=== PATIENT | female | born 1995 | race Two or more races ===

== ENCOUNTER 2023-07-13 12:45 | Outpatient (CLI) | payer OTHER | END 2023-07-13 13:00 | disposition home or self-care (01) | LOC: LAB.N 12:45 | PROVIDERS: ATTEND Physician Assistant Medical | DX: R10.9 Unspecified abdominal pain (principal) | CPT/HCPCS: 87077; 87086 ==

== ENCOUNTER 2023-07-14 19:59 | Emergency (ER) | payer OTHER ==
[2023-07-14 20:27] LABS: BASOPHILS % (AUTO) 0.4 %; EOSINOPHILS # (AUTO) 0.1 10^3/uL (0.0-0.7); EOSINOPHILS % (AUTO) 0.8 %; HGB - HEMOGLOBIN 14.4 g/dL (12.0-16.0); LYMPHOCYTES # (AUTO) 3.3 10^3/uL (1.5-3.5); LYMPHOCYTES % (AUTO) 33.8 %; MEAN CORPUSCULAR HEMOGLOBIN 29.2 pg (27.0-31.0); MEAN CORPUSCULAR HGB CONC 34.3 g/dL (32.0-36.0); MEAN CORPUSCULAR VOLUME 85.2 fL (81.0-99.0); MEAN PLATELET VOLUME 11.4 fL (7.9-10.8); MONOCYTES # (AUTO) 0.6 10^3/uL (0.0-1.0); MONOCYTES % (AUTO) 6.1 %; NEUTROPHILS # (AUTO) 5.6 10^3/uL (1.5-6.6); NEUTROPHILS % (AUTO) 58.6 %; PLT - PLATELET COUNT 207 10^3/uL (130-450); RED BLOOD COUNT 4.93 10^6/uL (4.20-5.40); RED CELL DISTRIBUTION WIDTH 11.7 % (12.0-15.0); WHITE BLOOD COUNT 9.6 x10^3/uL (4.8-10.8)
--- NOTE | 2023-07-14 20:32 | ED Physician Documentation ---
History of Present Illness - Stated complaint Stated Complaint: L SIDE PX - Chief complaint Chief Complaint: Abd Pain - History obtained from History obtained from: Patient - Additonal information Additional information: 27yF with pmh asthma, psh cholecystectomy 2010, p/w 2-3 days of intermittent LLQ abdominal pain, worse with moving around and moving the left leg. no history of trauma to the hip or pelvic area. lmp 5 days ago. denies dysuria, hematuria, increased frequency, however she did get diagnosed with uti yesterday at [facility] and is on dose 2 of antibiotics. unsure which antibiotic. denies fever, n/v/d back pain. 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 : None HEENT: None Psych: None Musculoskeletal: None Derm: None - Past Surgical History Past Surgical History: Yes General: Cholecystectomy - Present Medications Home Medications: Ambulatory Orders Medication Instructions Recorded Confirmed Ketorolac [Toradol] 10 mg PO Q6H PRN #20 tablet 07/14/23 Nitrofurantoin Macrocrystal 1 cap PO BID 07/14/23 07/14/23 [Macrodantin] - Allergies Allergies/Adverse Reactions: Allergies Allergy/AdvReac Type Severity Reaction Status Date / Time enoxaparin [From Lovenox] Allergy Hives Verified 07/14/23 20:03 omeprazole Allergy Hives Verified 07/14/23 20:03 - Social History Does the pt smoke?: No Smoking Status: Never smoker Does the pt drink ETOH?: No Does the pt have substance abuse?: No - Immunizations Immunizations are current?: Yes - POLST Patient has POLST: No PD ED PE NORMAL - Vitals Vital signs reviewed: Yes - General General: Alert and oriented X 3, Well developed/nourished, Other (tearful appearing. large body habitus) - HEENT HEENT: Atraumatic, PERRL, EOMI - Neck Neck: Supple, no meningeal sign - Cardiac Cardiac: RRR - Respiratory Respiratory: No respiratory distress, Clear bilaterally - Abdomen Abdomen: Non tender, Non distended, Other (LLQ discomfort to palpation without guarding or rebound) - Back Back: No CVA TTP - Derm Derm: Normal color, Warm and dry Results - Vitals Vitals: Vital Signs - 24 hr 07/14/23 07/14/23 20:03 22:06 Temperature 36.8 C Heart Rate 90 76 Respiratory 18 16 Rate Blood Pressure 140/90 H 125/84 H O2 Saturation 98 97 Oxygen O2 Source Room air - Labs Labs: Laboratory Tests 07/14/23 07/14/23 07/14/23 20:22 20:22 20:22 WBC 9.6 RBC 4.93 Hgb 14.4 Hct 42.0 MCV 85.2 MCH 29.2 MCHC 34.3 RDW 11.7 L Plt Count 207 MPV 11.4 H Neut # (Auto) 5.6 Lymph # (Auto) 3.3 [place] # (Auto) 0.6 Eos # (Auto) 0.1 Baso # (Auto) 0.0 Absolute Nucleated RBC 0.00 Nucleated RBC % 0.0 Sodium 137 Potassium 3.6 Chloride 103 Carbon Dioxide 26 Anion Gap 8.0 BUN 9 Creatinine 0.6 Estimated GFR (MDRD) 119 Glucose 88 Calcium 9.7 Total Bilirubin 0.3 AST 23 ALT 50 Alkaline Phosphatase 79 Total Protein 7.2 Albumin 4.7 Globulin 2.5 Albumin/Globulin Ratio 1.9 Lipase 12 Urine Color STRAW Urine Clarity CLEAR Urine pH 6.0 Ur Specific [place] <=1.005 Urine Protein NEGATIVE Urine Glucose (UA) NEGATIVE Urine Ketones NEGATIVE Urine Occult Blood NEGATIVE Urine Nitrite NEGATIVE Urine Bilirubin NEGATIVE Urine Urobilinogen 0.2 (NORMAL) Ur Leukocyte Esterase NEGATIVE Ur Microscopic Review NOT INDICATED Urine Culture Comments NOT INDICATED Urine HCG, Qual NEGATIVE PD Medical Decision Making - ED course ED course: 27yF presents to the ED with LLQ pain in setting of recently diagnosed uti. plan to obtain cbc, abdominal panel, hcg, u/a, and u/s to r/o ovarian torsion or ectopic . everything was normal. IV toradol and IV dilaudid provided for pain to good effect. return precautions will be given and plan to f/u with pcp. Departure - Departure Disposition: 01 Home, Self Care Clinical Impression: Abdominal pain Condition: Stable Instructions: Abdominal Pain Prescriptions: Ketorolac [Toradol] 10 mg PO Q6H PRN #20 tablet PRN Reason: Pain Comments: You were seen in the emergency department for Abdominal pain and hip pain. You labwork, urine and ultrasound were normal. Pain medicine sent electronically to [facility]. Please follow-up with your primary care provider and return to the emergency department if you have any new or worsening symptoms or other concerns. Forms: PCP List
[2023-07-14 20:47] LABS: BILIRUBIN,URINE NEGATIVE (NEGATIVE); GLUCOSE, URINE (UA) NEGATIVE (NEGATIVE); KETONES,URINE (UA) NEGATIVE (NEGATIVE); LEUKOCYTE ESTERASE, URINE NEGATIVE (NEGATIVE); NITRITE,URINE NEGATIVE (NEGATIVE); OCCULT BLOOD,URINE NEGATIVE (NEGATIVE); PROTEIN,URINE NEGATIVE (NEGATIVE); UROBILINOGEN,URINE 0.2 (NORMAL) E.U./dL (NORMAL)
[2023-07-14 20:50] LABS: CLARITY,URINE CLEAR (CLEAR)
[2023-07-14 20:51] LABS: HCG UR QUAL NEGATIVE
[2023-07-14 20:58] LABS: ALBUMIN 4.7 g/dL (3.2-5.5); ALBUMIN/GLOBULIN RATIO 1.9 (1.0-2.2); BILIRUBIN,TOTAL 0.3 mg/dL (0.2-1.0); CALCIUM 9.7 mg/dL (8.5-10.3); CREATININE 0.6 mg/dL (0.6-1.3); POTASSIUM 3.6 mmol/L (3.5-4.5); TOTAL PROTEIN 7.2 g/dL (6.4-8.9)
[2023-07-14] MEDS: KETOROLAC 15 MG/ML VIAL IVP STA (21:09)
[2023-07-14] MEDS: HYDROmorphone 1 MG/ML CARPUJECT IVP STA (23:16)
[2023-07-15] MEDS: ONDANSETRON 4 MG/2 ML VIAL IVP STA (00:04)
--- NOTE | 2023-07-15 00:29 | Ultrasound Report ---
PROCEDURE: Pelvic w/Doppler Complete INDICATIONS: LLQ pain TECHNIQUE: Real-time scanning was performed of the pelvic organs, with image documentation. Additional endovagi nal scanning was necessary due to incomplete visualization of the adnexal and endometrial structures by transabdominal scanning. Doppler interrogation was performed of the ovaries bilaterally. COMPARISON: None. FINDINGS: Uterus: Uterus is anteverted and normal in size at 7.3 x 2.8 x 3.8 cm. The myometrium is homogeneou s. The endometrium measures 5 mm in combined thickness. No uterine or endometrial masses. Normal va scular flow. Nabothian cyst in the cervix. Ovaries: The right ovary measures 2.6 x 1.6 x 3.3 cm, with a calculated ovarian volume of 7.2 cc. T he left ovary measures 2.1 x 2.2 x 2.1 cm, with a calculated ovarian volume of 4.9 cc. Appropriate b lood flow to the ovaries with Doppler interrogation. Less than 12 follicles can be seen in each ova ry. No adnexal masses are seen. No cystic lesions measuring greater than 3 cm. Other: No pathologic free abdominal or pelvic fluid. IMPRESSION: Normal pelvic ultrasound. Preliminary results given by the laborer poultry hatchery to the ordering provider immediately following the study . Reviewed by: Lizy Bishop MD on 07/15/2023 12:28 AM PDT Approved by: Lizy Bishop MD on 07/15/2023 12:28 AM PDT Station ID: [id number]
[2023-07-15 00:45] VITALS: BP 131/92; O2SAT 95
== END 2023-07-15 00:38 | disposition home or self-care (01) ==
LOC: ED 19:59
DX: R10.32 Left lower quadrant pain (principal); Z79.899 Other long term (current) drug therapy
CPT/HCPCS: 36415; 76856; 80053; 81003; 81025; 83690; 85025; 93975; 96374; 96375; 99284; J1170; 81001; 87086

== ENCOUNTER 2023-12-20 21:40 | Emergency (ER) | payer OTHER ==
--- NOTE | 2023-12-21 00:20 | ED Physician Documentation ---
PD HPI BACK PAIN - Stated complaint Stated Complaint: BACK PX - Chief complaint Chief Complaint: Back Pain - History obtained from History obtained from: Patient - Additional information Additional information: HPI from patient. Patient c/o left low pain pain radiating around left pelvic area to left hip. Gradual onset approximately 1 week ago without inciting event; denies injury. Pain waxes and wanes without apparent exacerbating or ameliorating factors. Pain is not noticeably worse with palpation, movement, ambulation. Denies numbness, weakness, nausea, vomiting. Denies h/o similar symptoms. Denies leg swelling. Review of Systems Constitutional: denies: Fever, Chills, Sweats Cardiac: reports: Reviewed and negative Respiratory: reports: Reviewed and negative GI: reports: Abdominal Pain. 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 HEENT: None Psych: None Musculoskeletal: None Derm: None - Past Surgical History Past Surgical History: Yes General: Cholecystectomy - Present Medications Home Medications: Ambulatory Orders Medication Instructions Recorded Confirmed HYDROcod/ACETAM 5/325 [Willow 5/325] 1 - 2 tablet PO Q6H PRN #14 tablet 12/21/23 - Allergies Allergies/Adverse Reactions: Allergies Allergy/AdvReac Type Severity Reaction Status Date / Time enoxaparin [From Lovenox] Allergy Hives Verified 12/20/23 21:48 omeprazole Allergy Hives Verified 12/20/23 21:48 - Social History Does the pt smoke?: No Smoking Status: Never smoker Does the pt drink ETOH?: No Does the pt have substance abuse?: No - Immunizations Immunizations are current?: Yes - POLST Patient has POLST: No PD ED PE NORMAL - Vitals Vital signs reviewed: Yes - General General: Alert and oriented X 3, No acute distress, Well developed/nourished - Cardiac Cardiac: RRR, No murmur - Respiratory Respiratory: No respiratory distress, Clear bilaterally - Abdomen Abdomen: Soft, Non distended - Back Back: No CVA TTP - Derm Derm: Normal color, Warm and dry, No rash PD ED PE EXPANDED - Abdomen Abdomen: Tender to palpation, Guarding (voluntary), Left abdomen (LLQ>suprapubic). No: Rebound Results - Vitals Vitals: Oxygen O2 Source Room air - Labs Labs: Laboratory Tests 12/21/23 12/21/23 12/21/23 00:38 00:45 00:45 WBC 8.3 RBC 4.98 Hgb 14.5 Hct 43.5 MCV 87.3 MCH 29.1 MCHC 33.3 RDW 11.9 L Plt Count 196 MPV 11.6 H Neut # (Auto) 3.9 Lymph # (Auto) 3.6 H [place] # (Auto) 0.6 Eos # (Auto) 0.2 Baso # (Auto) 0.0 Absolute Nucleated RBC 0.00 Nucleated RBC % 0.0 Sodium 138 Potassium 3.8 Chloride 103 Carbon Dioxide 26 Anion Gap 9.0 BUN 8 Creatinine 0.6 Estimated GFR (MDRD) 119 Glucose 99 Calcium 9.8 Total Bilirubin 0.6 AST 60 H ALT 157 H Alkaline Phosphatase 77 Total Protein 8.0 Albumin 4.6 Globulin 3.4 Albumin/Globulin Ratio 1.4 Lipase 16 Urine Color YELLOW Urine Clarity CLEAR Urine pH 6.0 Ur Specific [place] 1.020 Urine Protein NEGATIVE Urine Glucose (UA) NEGATIVE Urine Ketones NEGATIVE Urine Occult Blood NEGATIVE Urine Nitrite NEGATIVE Urine Bilirubin NEGATIVE Urine Urobilinogen 0.2 (NORMAL) Ur Leukocyte Esterase NEGATIVE Ur Microscopic Review NOT INDICATED Urine Culture Comments NOT INDICATED Urine HCG, Qual NEGATIVE - Rads (name of study) CT A/P with IV contrast Relevant Findings:: Prelim report reviewed, See rad report PD Medical Decision Making - ED course Complexity details: reviewed old records, reviewed results, re-evaluated patient, considered differential, d/w patient ED course: Normal ER abdominal panel except mildly elevated AST, ALT (otherwise normal LFTs, lipase). Normal WBC, h/h, platelets. Normal UA, negative UHCG. Unre markable CT A/P (w/ IV contrast). She is given 30mg IV toradol and reports good relief of sx. Provided take-home pack of vicodin. Etiology of symptoms is not apparent at this time. Results d/w patient, return precautions reviewed, advised to seek follow up with PCP (next available appointment) for reevaluation. I reviewed ED MD notes and test results from [facility] ED visit in June (five months ago); the HPI reads very similar to her presenting c/o today, but patient tells me she feels these symptoms feel different although not able to elaborate how. On the ED visit in June, w/u included pelvic US (note indicates this was mostly to r/u ovarian torsion, and the results of said US were normal). Departure - Departure Disposition: 01 Home, Self Care Clinical Impression: Back pain Qualifiers: Back pain location: low back pain Chronicity: acute Back pain laterality: left Sciatica presence: without sciatica Qualified Code(s): M54.50 - Low back pain, unspecified Condition: Good Instructions: ED Neck Back Pain General Follow-Up: [facility] [place] [Provider Group] Prescriptions: HYDROcod/ACETAM 5/325 [[place]ow 5/325] 1 - 2 tablet PO Q6H PRN #14 tablet PRN Reason: Pain Comments: There were no concerning nor diagnostic findings on tonight's tests, include urinalysis, blood tests, and the CT scan of your abdomen and pelvis. The cause of your symptoms is not apparent at this time. I have electronically submitted a prescription for Vicodin (narcotic/opiate pain medication) to the [facility] pharmacy in [place]. Contact your primary care provider when the office opens later today to arrange for a follow-up/reevaluation appointment, ideally by the end of this week. I am prescribing a short course of narcotic pain medication for you. These are potentially dangerous and addictive medications that should be used carefully. These medications may constipate you. Take an [id number]-ibspvvr stool softener (docusate) twice daily with plenty of water while taking these medications. If you go 24 hours without a bowel movement, take [id number] miralax, per package instructions. Do not drink or drive while taking these medications. If you received narcotic or sedating medications while in the emergency department, do not drive for 24 hours. Store this medication in a safe, secure place and out of reach of children. It is a violation of federal law to give or sell this medication to another person or to use in a manner other than prescribed. The ED will not refill narcotic prescriptions, including prescriptions lost or stolen. To dispose of unwanted medications: 1. [facility] [address] [facility] in [place] has a medication drop box. They accept prescription medications (in pill form) Alvin through Thursday 9:00 a.m. to 5:00 p.m. 2. The [facility] [employer] accepts prescription medications (in pill form only) for disposal year round. Call for more information. 3. Contact the [facility] for the next [facility] sponsored prescription drug collection event. , [phone], or [phone]; Discharge Date/Time: 12/21/23 03:26
[2023-12-21] MEDS ORDERED: iohexoL-300 100 ML VIAL ONE (00:43)
[2023-12-21 00:50] LABS: BASOPHILS % (AUTO) 0.4 %; EOSINOPHILS # (AUTO) 0.2 10^3/uL (0.0-0.7); EOSINOPHILS % (AUTO) 2.7 %; HCT - HEMATOCRIT 43.5 % (37.0-47.0); HGB - HEMOGLOBIN 14.5 g/dL (12.0-16.0); LYMPHOCYTES # (AUTO) 3.6 10^3/uL (1.5-3.5); LYMPHOCYTES % (AUTO) 43.1 %; MEAN CORPUSCULAR HEMOGLOBIN 29.1 pg (27.0-31.0); MEAN CORPUSCULAR HGB CONC 33.3 g/dL (32.0-36.0); MEAN CORPUSCULAR VOLUME 87.3 fL (81.0-99.0); MEAN PLATELET VOLUME 11.6 fL (7.9-10.8); MONOCYTES # (AUTO) 0.6 10^3/uL (0.0-1.0); MONOCYTES % (AUTO) 7.1 %; NEUTROPHILS # (AUTO) 3.9 10^3/uL (1.5-6.6); NEUTROPHILS % (AUTO) 46.5 %; PLT - PLATELET COUNT 196 10^3/uL (130-450); RED BLOOD COUNT 4.98 10^6/uL (4.20-5.40); RED CELL DISTRIBUTION WIDTH 11.9 % (12.0-15.0); WHITE BLOOD COUNT 8.3 x10^3/uL (4.8-10.8)
[2023-12-21] MEDS: KETOROLAC 30 MG/ML VIAL IVP STA (00:52)
[2023-12-21 01:02] LABS: BILIRUBIN,URINE NEGATIVE (NEGATIVE); GLUCOSE, URINE (UA) NEGATIVE (NEGATIVE); KETONES,URINE (UA) NEGATIVE (NEGATIVE); LEUKOCYTE ESTERASE, URINE NEGATIVE (NEGATIVE); NITRITE,URINE NEGATIVE (NEGATIVE); OCCULT BLOOD,URINE NEGATIVE (NEGATIVE); PROTEIN,URINE NEGATIVE (NEGATIVE); UROBILINOGEN,URINE 0.2 (NORMAL) E.U./dL (NORMAL)
[2023-12-21 01:04] LABS: CLARITY,URINE CLEAR (CLEAR); HCG UR QUAL NEGATIVE
[2023-12-21 01:10] LABS: ALBUMIN 4.6 g/dL (3.2-5.5); ALBUMIN/GLOBULIN RATIO 1.4 (1.0-2.2); BILIRUBIN,TOTAL 0.6 mg/dL (0.2-1.0); CALCIUM 9.8 mg/dL (8.5-10.3); CREATININE 0.6 mg/dL (0.6-1.3); POTASSIUM 3.8 mmol/L (3.5-4.5)
--- NOTE | 2023-12-21 01:36 | CT Report ---
PROCEDURE: Abdomen/Pelvis W INDICATIONS: LLQ pain, TTP CONTRAST: 100ML [id number] TECHNIQUE: After the administration of intravenous contrast, a CT scan of the abdomen and pelvis was performed. Images were recorded and evaluated at appropriate window settings. Reformats: coronal and sagittal. F or radiation dose reduction, the following was used: automated exposure control, adjustment of mA and /or kV according to patient size. COMPARISON: Correlation is made with pelvic ultrasound, 07/14/2023 FINDINGS: Image quality: Diagnostic. Lower chest: Unremarkable. Liver: No solid mass. Diffuse fatty liver infiltration can be seen. Gallbladder: Removed. Biliary tree: No intrahepatic or extrahepatic dilation, accounting for age. Spleen: No splenomegaly. Pancreas: No pancreatic ductal dilation. Adrenals: No adrenal nodule. Kidneys and ureters: No hydronephrosis. No renal cystic lesion which requires follow up. No solid mas s. Stomach, bowel and peritoneum: In this patient with this given history, scrutiny is given to the sigm oid colon. The significant sigmoid colon abnormality is seen. No focal left lower quadrant inflammato ry change is seen. No gastric or small bowel dilation. No abnormal wall thickening. No pathologic free fluid. A normal appendix is seen. Lymph nodes: No central or retroperitoneal adenopathy. Vessels: No infrarenal aortic aneurysm. Patent portal vein. PELVIS Reproductive organs: The uterus demonstrates an unremarkable appearance for age. No adnexal masses ar e seen. Bladder: No abnormal wall thickening, accounting for underdistention. Pelvic lymph nodes: No pelvic adenopathy by size criteria. Bones: No aggressive osseous abnormality. Other: No significant ventral or inguinal hernia. IMPRESSION: No imaging explanation is found for the patient's presenting symptoms. Negative for diverticulitis. Additional findings: Fatty liver infiltration Cholecystectomy Normal appendix Reviewed by: Jamal Parra MD on 12/21/2023 12:35 AM NOEL Approved by: aJmal Parra MD on 12/21/2023 12:35 AM NOEL Station ID: [id number]
[2023-12-21 01:45] VITALS: O2SAT 99
[2023-12-21] MEDS: iohexoL-300 100 ML VIAL IVP ONE (02:15)
[2023-12-21] MEDS: HYDROcod/ACETAM 5/325 MG TABLET PO STA (03:16)
[2023-12-21 03:29] VITALS: BP 136/78
== END 2023-12-21 03:26 | disposition home or self-care (01) ==
LOC: ED 21:40
DX: M54.50 Low back pain, unspecified (principal)
CPT/HCPCS: 36415; 74177; 80053; 81003; 81025; 83690; 85025; 96374; 99284; A9270; Q9967; 81001; 87086